=== PATIENT | female | born 1995 | race Caucasian/White ===

== ENCOUNTER → 2024-01-01 13:01 | Outpatient (REF) | payer OTHER, SELFPAY | LOC: RAD 13:01 | PROVIDERS: ATTENDING PHYSICIAN Chiropractor; FAMILY PHYSICIAN Internal Medicine | DX: M99.06 Segmental and somatic dysfunction of lower extremity (principal) | CPT/HCPCS: 73610 ==

== ENCOUNTER → 2025-02-23 13:22 | Outpatient (REF) | payer OTHER, SELFPAY | LOC: PNTC 13:22 | PROVIDERS: ATTENDING PHYSICIAN Obstetrics & Gynecology | DX: O99.212 Obesity complicating pregnancy, second trimester (principal); O28.5 Abnormal chromosomal and genetic finding on antenatal screening of mother | CPT/HCPCS: 76805 ==

== ENCOUNTER → 2025-02-25 13:13 | Outpatient (REF) | payer OTHER, SELFPAY | LOC: PNTC 13:13 | PROVIDERS: ATTENDING PHYSICIAN Obstetrics & Gynecology | DX: O35.13X0 Maternal care for (suspected) chromosomal abnormality in fetus, Trisomy 21, not applicable or unspecified (principal); O28.5 Abnormal chromosomal and genetic finding on antenatal screening of mother | CPT/HCPCS: 36415; 59000; 76946 ==

== ENCOUNTER 2025-09-05 19:42 | Emergency (ER) | payer OTHER, SELFPAY ==
[2025-09-05 19:49] VITALS: BP 114/85
[2025-09-05 22:03] LABS: Hematocrit 40.5 % (37.0-47.0); Hemoglobin 14.0 g/dL (12.0-16.0); Mean Corp Hgb Conc. 34.6 g/dL (33.0-37.0); Mean Corpuscular Volume 87.9 fL (81.0-99.0); Nucleated Red Blood Cells % 0 %; Platelet Count 223 10^3/uL (130-400); Red Cell Dist. Width 12.8 % (11.5-14.5)
[2025-09-05] MEDS: REGLAN 10 MG IV (22:04)
[2025-09-05] MEDS: BENADRYL 25 MG IV (22:07)
[2025-09-05] MEDS: LR 1000 IV (22:12)
[2025-09-05 22:15] LABS: COVID-19 Antigen Negative (Negative)
[2025-09-05 22:22] LABS: ALT (SGPT) 21 U/L (0-35); AST (SGOT) 26 U/L (14-36); Albumin 4.6 g/dl (3.5-5.0); Alkaline Phosphatase 74 U/L (38-126); Blood Urea Nitrogen 9 mg/dl (7-17); Calcium 10.3 mg/dl (8.4-10.2); Carbon Dioxide 25 mmol/L (22-30); Chloride 105 mmol/L (98-107); Glucose 88 mg/dl (70-99); Lipase 59 U/L (23-300); Potassium 4.0 mmol/L (3.5-5.1); Sodium 135 mmol/L (135-145); Total Protein 7.5 g/dl (6.3-8.2); eGFR > 60.00
--- NOTE | 2025-09-05 23:30 | ED.GENMED ---
History of Present Illness
General
Chief Complaint: Abdominal Symptoms
Source: patient
Exam Limitations: none
Time Seen by Provider: 09/05/25 21:05
Nursing documentation reviewed up to this point in time: agreed with
History of Present Illness
History of Present Illness:
Patient is a 30-year-old at an estimated 6 weeks gestation who presents to the emergency department for evaluation of nausea/vomiting. Patient states that earlier this morning she became nauseous and then proceeded have a few episodes of
vomiting. She has not been able to keep down any food or liquid. She denies any abdominal cramping. She has not had any vaginal bleeding or spotting. She denies any fever or dysuria. No diarrhea.
No known sick contacts however she was recently at a large family gathering for [place].
Patient is following with [facility] for her primary [facility]. She had lab work which confirmed however is yet to have her first ultrasound. She is scheduled tomorrow for her first appointment in person for intake.
Past History
Past History
ED Past Medical History: None
ED Past Surgical History: None
Social History
Personal: Single
Review of Systems
Review of Systems
Allergies reviewed?: Yes
All Other Systems: ROS reviewed and negative except as documented in HPI and ROS
Phy Exam
Physical Exam
Physical Exam:
Vitals: Patient's vital signs are stable. Afebrile
General: Patient is very well-appearing, in no distress
Skin: Warm and dry, no rashes or lesions
Head: Normocephalic, atraumatic
Eyes: Sclera nonicteric.
Throat: Protecting airway
Neck: Normal ROM, no cervical spine tenderness, no meningismus
Cardiac: Regular rate and rhythm, no murmurs.
Pulm: Normal respiratory effort. Lungs clear
Abdomen: Abdomen soft. No areas of focal tenderness.
Extremities: No evidence of cyanosis or edema
Neuro: AAOx3. Grossly intact
Psychiatric: Normal affect.
Course
Orders/Labs/Results
Orders:
Orders
09/05/25 21:23
Diphenhydramine [Benadryl] 25 mg IV NOW STA
Metoclopramide [Reglan] 10 mg IV NOW STA
US W Transvaginal Urgent
Reason For Exam: vomiting, no documented IUP
09/05/25 21:26
Lactated Ringers [Lr] 1,000 ml IV BOLUS
09/05/25 21:51
COVID-19 Antigen Urgent
Source: Nasal Swab
Complete Blood Count/With Diff Urgent
Comprehensive Metabolic Panel Urgent
HCG, Beta Quantitative [Beta HCG Quantitative] Urgent
Is this a screen?: No
Lipase Urgent
Influenza A+B Rapid Molecular Urgent
IT Source: Nasal Swab
Specimen Description:
Abnormal Lab Results
09/05/25
21:51
MPV 10.8 H fL
(7.4-10.4)
Absolute Neuts (auto) 7.8 H 10^3/uL
(1.4-6.5)
Lymphocytes % 20.2 L %
(20.5-51.1)
Calcium 10.3 H mg/dl
(8.4-10.2)
09/05/25 21:51
09/05/25 21:51
Vital Signs
Initial and Last Documented VS:
Initial Vital Signs
Temp Pulse Resp BP Pulse Ox
98.5 F 81 16 114/85 99
09/05/25 19:49 09/05/25 19:49 09/05/25 19:49 09/05/25 19:49 09/05/25 19:49
Last Documented Vital Signs
Temp Pulse Resp BP Pulse Ox
98.5 F 66 16 126/68 100
09/05/25 19:49 09/06/25 00:50 09/06/25 00:50 09/06/25 00:50 09/06/25 00:50
MDM/Problems Addressed
Differential Diagnosis Includes:
Not limited to: Viral gastroenteritis, acute dehydration/electrolyte abnormality, hyperemesis gravidarum, etc.
MDM/Problems Addressed:
30-year-old female at an estimated six weeks gestation presenting with nausea/vomiting today. No associated abdominal cramping, vaginal spotting or loss of fluids, syncope. confirmed via bloodwork however no ultrasound. No know sick
contacts.
Vitals stable. On exam, patient appears well and in no distress. Abdomen is soft without any areas of focal tenderness. Differential includes possible viral illness vs nausea/vomiting from . Do not suspect acute intra-abdominal infection
given she is afebrile with benign abdominal exam.
Will check labs, viral studies. Will obtain US as no documented IUP. Will give IV fluids, treat nausea and reassess.
Update: Labs without any acute abnormalities. HCG of 22,000. US reveals a single IUP estimated 6 weeks, 2 days. Cardiac activity noted although unable to determine heart rate given gestational age.
Patients symptoms have improved since arrival to ED following fluids and antiemetic. She is tolerating water and crackers.
Feel stable for discharge home with supportive care. She will follow with [facility] as scheduled tomorrow for intake appointment. Strict return precautions discussed.
Chronic conditions affecting care:
N/A
Acute Exacerbation and/or Progression of Chronic Illness:
N/A
*Pulse Oximetry
SaO2: 99
Oxygen Mode of Delivery: Room air
Patient hypoxic: no
*EKG
Interpreted by ED Provider?: NA
*Line Painting Machine Operator Interpretation
Rate: Line Painting Machine Operator- N/A
*Critical Care Note
Total Time (30-74mins, 75-104mins- exclusive of procedures): Not Applicable
ED Attending Note
-
Portions of this chart may have been created with voice recognition software.� Occasional wrong word or��sound alike� substitutions may have occurred due to the inherent limitations of voice recognition software.
Discharge Plan
Departure
Patient Disposition: Home (Routine Discharge)
Date of Disposition: 09/06/25
Time of Disposition: :27
Patient with high blood pressure during this ER visit?: No
Condition: Good
Covid-19: Negative COVID-19
Discharge Problem:
Vomiting during
Instructions: Nausea and vomiting in adults - ED (DC), Morning sickness - ED (DC)
Prescriptions:
No Action
fluoxetine 20 MG capsule
20 mg PO DAILY
norethindrone ac-eth estradiol [10/26 ()] 1 TAB tablet
1 tab PO DAILY
ondansetron 4 MG tablet,disintegrating
4 mg PO TIDPRN PRN (Reason: nausea/vomiting) Qty: 9 0RF
Referrals:
Moni Henderson DO [Active, Gynecology] - Keep scheduled appt
Ayesha Maya CRNP [Family Provider, Internal Medicine]
Activity Restrictions/Additional Instructions:
RETURN TO THE EMERGENCY DEPARTMENT WITH ANY FEVER, ABDOMINAL PAIN, INTRACTABLE NAUSEA/VOMITING, PERSISTENT LACK OF APPETITE, VAGINAL BLEEDING OR LOSS OF FLUIDS, OR ANY OTHER CONCERNS
- As discussed�your lab work showed no acute abnormalities today in the emergency department. Your ultrasound did show an intrauterine estimated at 6 weeks, 2 days. Cardiac activity was noted however unable to determine heart rate
given early .
- It is possible that your symptoms are due to early or a viral illness.
- Please stay well-hydrated. I would recommend a bland diet over the next 2 days and slowly advance as tolerated
- Follow-up with [facility] tomorrow as scheduled for further evaluation/management
Monitor your symptoms closely and return to the emergency department with any acute worsening/new symptoms or any other concerns
Interventions
Interventions:
*Risk Screen - Suicide Last Done: 09/05/25 19:49
*General Assessment Last Done: 09/05/25 21:17
*Neglect/Abuse Screening Last Done: 09/05/25 19:49
*ED- Fall Risk Assessment Last Done: 09/05/25 21:17
*ED COVID-19 Vaccine History Last Done: 09/05/25 21:17
*ED Influenza Vaccine History Last Done: 09/05/25 21:17
*Nursing Disposition Last Done: 09/06/25 01:50
MK-Nyxihj-Yiilfxsgkf Assessment Last Done: 09/05/25 21:17
Discharge Date and Time
Discharge Date/Time: 09/06/25 01:50
Print Language: [id number]
[2025-09-06 00:50] VITALS: BP 126/68
== END 2025-09-06 01:50 | disposition home or self-care (01) ==
LOC: EMR 19:42
PROVIDERS: Physician Assistant; EMERGENCY PHYSICIAN Emergency Medicine; FAMILY PHYSICIAN Nurse Practitioner
DX: O21.9 Vomiting of pregnancy, unspecified (principal); Z3A.01 Less than 8 weeks gestation of pregnancy
CPT/HCPCS: 99284; 96374; 96375; 96361; 76801; 76817; 80053; 83690; 84702; 85025; 87502; 87811

== ENCOUNTER → 2025-09-07 13:47 | Outpatient (REF) | payer OTHER, SELFPAY | LOC: RAD 13:47 | PROVIDERS: ATTENDING PHYSICIAN Obstetrics & Gynecology | DX: O26.851 Spotting complicating pregnancy, first trimester (principal) | CPT/HCPCS: 76801 ==